=== PATIENT | female | born 1955 | race Caucasian/White ===

== ENCOUNTER 2020-06-08 10:44 | Emergency (ER) | payer BC ==
[2020-06-09 07:07] LABS: SARS-CoV-2 NAA Not Detected (Not Detected)
== END 2020-06-08 11:22 | disposition home or self-care (01) ==
LOC: JVIRT 10:44
DX: Z20.822 Contact with and (suspected) exposure to COVID-19 (principal)
CPT/HCPCS: C9803; G2251-GT; Q3014-GT; U0003; U0005